=== PATIENT | female | born 1985 | race Caucasian/White ===

== ENCOUNTER → 2017-11-10 | Outpatient (REF) | payer SELFPAY | LOC: M LAB REF 18:15 | DX: Z34.83 Encounter for supervision of other normal pregnancy, third trimester (principal); Z36.89 Encounter for other specified antenatal screening | CPT/HCPCS: 87081 ==

== ENCOUNTER → 2017-11-21 | Outpatient (CLI) | payer SELFPAY ==
[2017-11-21 17:22] LABS: BASO % 0.3 % (0.0-1.0); EOS # 0.2 10^3/uL (0.0-0.50); HEMATOCRIT 36.7 % (36.0-47.0); HEMOGLOBIN 11.9 g/dl (12.0-15.5); IMMATURE GRANULOCYTE % 0.6 % (0-3.0); LYMPH # 1.8 10^3/uL (1.5-4.5); LYMPH % 18.6 % (24.0-44.0); MEAN CORPUSCULAR HEMOGLOBIN 28.7 pg (27.0-33.0); MEAN CORPUSCULAR HGB CONC 32.4 g/dl (32.0-36.5); MEAN CORPUSCULAR VOLUME 88.6 fl (80.0-96.0); MONO # 0.7 10^3/uL (0.0-0.8); MONO % 7.2 % (0.0-5.0); NEUTROPHILS % 71.3 % (36.0-66.0); PLATELET COUNT, AUTOMATED 222 10^3/uL (150-450); RED BLOOD COUNT 4.14 10^6/uL (4.00-5.40); RED CELL DISTRIBUTION WIDTH 13.4 % (11.5-14.5); WHITE BLOOD COUNT 9.7 10^3/uL (4.0-10.0)
[2017-11-24 13:44] LABS: RUBELLA IgG QUALITATIVE IMMUNE (IMMUNE)
[2017-11-24 13:49] LABS: HBsAg Prenatal NEGATIVE (NEGATIVE)
[2017-11-24 14:14] LABS: HEPATITIS C VIRUS ABY INDEX 0.3 INDEX (<0.8)
[2017-11-24 14:14] LABS: HIV 1&2 SCREEN CENTAUR NEGATIVE (NEGATIVE)
== END ==
LOC: M SMT 14:33
DX: Z36.89 Encounter for other specified antenatal screening (principal); Z3A.36 36 weeks gestation of pregnancy
CPT/HCPCS: 86762

== ENCOUNTER 2017-12-01 06:30 | Inpatient (IN) | payer SELFPAY ==
[2017-12-01] MEDS ORDERED: LR 1,000 ML IV (06:45)
[2017-12-01] MEDS: LACTATED RINGER'S 1000 ML IV (07:00)
[2017-12-01 07:07] LABS: HEMATOCRIT 38.8 % (36.0-47.0); HEMOGLOBIN 12.8 g/dl (12.0-15.5); MEAN CORPUSCULAR HEMOGLOBIN 28.8 pg (27.0-33.0); MEAN CORPUSCULAR VOLUME 87.4 fl (80.0-96.0); PLATELET COUNT, AUTOMATED 233 10^3/uL (150-450); RED BLOOD COUNT 4.44 10^6/uL (4.00-5.40); RED CELL DISTRIBUTION WIDTH 13.5 % (11.5-14.5); WHITE BLOOD COUNT 11.6 10^3/uL (4.0-10.0)
[2017-12-01] MEDS ORDERED: ONDANSETRON 4MG/2ML VIAL (J2405) As Ordered (07:13)
[2017-12-01] MEDS ORDERED: dexameTHASONE 4 MG/ML 1ML VIAL (J1100) As Ordered (07:13)
[2017-12-01] MEDS ORDERED: OXYTOCIN INJ 10 UNITS/ML VIAL (J2590) As Ordered (07:13)
[2017-12-01] MEDS ORDERED: MORPHINE PRES-FREE INJ 10 MG/10 ML VIAL (J2274) As Ordered (07:19)
[2017-12-01] MEDS ORDERED: fentaNYL 100 MCG/2 ML INJECTION (J3010) As Ordered (07:19)
[2017-12-01] MEDS: BICITRA 30ML SOLN UDC PO (09:28)
[2017-12-01] MEDS ORDERED: NALOXONE INJ 0.4 MG/1 ML VIAL (J2310) IV ×2 (09:40)
[2017-12-01] MEDS ORDERED: ONDANSETRON 4MG/2ML VIAL (J2405) IV ×3 (09:40→11:00)
[2017-12-01] MEDS ORDERED: NALBUPHINE HCL 10 MG/ML AMP (J2300) IV (09:40)
[2017-12-01] MEDS ORDERED: METOCLOPRAMIDE INJ 10MG/2ML VIAL (J2765) IV (09:40)
[2017-12-01] MEDS ORDERED: KETOROLAC 60 MG/2 ML VIAL (J1885) As Ordered (10:29)
[2017-12-01] MEDS ORDERED: ePHEDrine SULFATE 25 MG/5 ML(5MG/ML) SYRINGE As Ordered (10:29)
[2017-12-01] MEDS ORDERED: MEASLES,MUMPS,RUBELLA VACCINE INJ (MMR-II) (90707) SC (10:45)
[2017-12-01] MEDS ORDERED: RHOGAM 300 MCG (1500 IU) INJ (J2790) IM (10:45)
[2017-12-01] MEDS ORDERED: DOCUSATE SODIUM 100 MG CAP PO (10:45)
[2017-12-01] MEDS ORDERED: PERCOCET 5MG/325MG TAB PO ×3 (10:45→11:00)
[2017-12-01] MEDS: LR 1,000 ML IV ×2 (11:00→13:32)
[2017-12-01] MEDS ORDERED: fentaNYL 100 MCG/2 ML INJECTION (J3010) IV (11:00)
[2017-12-01] MEDS: KETOROLAC 30 MG/ML VIAL (J1885) IV ×2 (17:18→23:18)
[2017-12-02] MEDS: KETOROLAC 30 MG/ML VIAL (J1885) IV (05:49)
[2017-12-02] MEDS: PRENATAL VITAMINS CHEWABLE TABLET PO (09:11)
[2017-12-02 09:33] LABS: HEMATOCRIT 31.5 % (36.0-47.0); MEAN CORPUSCULAR HEMOGLOBIN 29.2 pg (27.0-33.0); MEAN CORPUSCULAR HGB CONC 33.3 g/dl (32.0-36.5); MEAN CORPUSCULAR VOLUME 87.5 fl (80.0-96.0); PLATELET COUNT, AUTOMATED 202 10^3/uL (150-450); RED CELL DISTRIBUTION WIDTH 13.7 % (11.5-14.5); WHITE BLOOD COUNT 13.3 10^3/uL (4.0-10.0)
[2017-12-02 09:48] LABS: HEMOGLOBIN 10.5 g/dl (12.0-15.5)
[2017-12-02] MEDS ORDERED: IBUPROFEN 800 MG TAB PO (13:00)
== END 2017-12-02 10:55 | disposition home or self-care (01) | DRG 540 ==
LOC: M LDI 06:30 → M OBS 11:46
PROVIDERS: Specialist
PROC: 10D00Z1 Extraction of Products of Conception, Low, Open Approach (ICD-10-PCS; principal; 2017-12-01 08:30)
DX: O34.211 Maternal care for low transverse scar from previous cesarean delivery (principal); Z3A.40 40 weeks gestation of pregnancy; O32.2XX0 Maternal care for transverse and oblique lie, not applicable or unspecified; Z37.0 Single live birth

== ENCOUNTER 2019-08-17 07:01 | Inpatient (IN) | payer SELFPAY ==
[~2019-08-17] VITALS: Ht 154.9 cm; Wt 113.1 kg
[2019-08-17] VITALS (8 sets, daily range): BP systolic 116–138; BP diastolic 60–69
[~2019-08-17 07:01] MED LIST: IBUP-1114 PO; IBUP80TA PO; OXYC1TAB23 FT; OXYC1TAB23 PO
[2019-08-17] MEDS ORDERED: LACTATED RINGER'S 1000 ML IV STA (08:23)
[2019-08-17] MEDS ORDERED: LR 1,000 ML IV SCH ×2 (08:23→11:59)
[2019-08-17] MEDS ORDERED: MORPHINE PRES-FREE INJ 10 MG/10 ML VIAL (J2274) As Ordered ONE (08:54)
[2019-08-17] MEDS ORDERED: OXYTOCIN INJ 10 UNITS/ML VIAL (J2590) As Ordered ONE (08:54)
[2019-08-17] MEDS ORDERED: ceFAZolin SOD 2 GM in IV 1 EA IV ONE (09:00)
[2019-08-17] MEDS ORDERED: BICITRA 30ML SOLN UDC PO ONE (09:00)
[2019-08-17 09:15] LABS: BASO % 0.3 % (0.0-1.0); EOS # 0.1 10^3/uL (0.0-0.5); EOS % 1.1 % (0.0-3.0); HEMATOCRIT 34.5 % (36.0-47.0); HEMOGLOBIN 11.4 g/dl (12.0-15.5); LYMPH # 1.2 10^3/uL (1.5-5.0); LYMPH % 12.5 % (24.0-44.0); MEAN CORPUSCULAR HEMOGLOBIN 28.8 pg (27.0-33.0); MEAN CORPUSCULAR VOLUME 87.1 fl (80.0-96.0); MONO # 0.7 10^3/uL (0.0-0.8); NEUTROPHILS # 7.6 10^3/uL (1.5-8.5); NEUTROPHILS % 78.9 % (36.0-66.0); PLATELET COUNT, AUTOMATED 204 10^3/uL (150-450); RED BLOOD COUNT 3.96 10^6/uL (4.00-5.40); WHITE BLOOD COUNT 9.7 10^3/uL (4.0-10.0)
[2019-08-17] MEDS ORDERED: METOCLOPRAMIDE INJ 10MG/2ML VIAL (J2765 PER 1) IV PRN (10:51)
[2019-08-17] MEDS ORDERED: NALBUPHINE HCL 10 MG/ML AMP (J2300) IV PRN (10:51)
[2019-08-17] MEDS ORDERED: NALOXONE INJ 0.4MG/1ML VIAL (J2310 PER 1MG) IV PRN ×2 (10:51)
[2019-08-17] MEDS ORDERED: diphenhydrAMINE 50MG/ML VIAL (J1200) IV PRN (10:51)
[2019-08-17] MEDS ORDERED: ONDANSETRON 4MG/2ML VIAL IV PRN ×3 (10:51→12:00)
[2019-08-17] MEDS ORDERED: dexameTHASONE 4 MG/ML 1ML VIAL (J1100 PER 1MG) As Ordered ONE (11:05)
[2019-08-17] MEDS ORDERED: KETOROLAC 60 MG/2 ML VIAL As Ordered ONE (11:05)
[2019-08-17] MEDS ORDERED: ONDANSETRON 4MG/2ML VIAL As Ordered ONE (11:05)
[2019-08-17 11:13] LABS: HIV 1&2 SCREEN CENTAUR NEGATIVE (NEGATIVE)
[2019-08-17] MEDS ORDERED: OXYTOCIN DRIP 30 UNITS in IV 1 EA IV SCH (11:59)
[2019-08-17] MEDS ORDERED: fentaNYL 100 MCG/2 ML INJECTION (J3010) IV PRN (12:00)
[2019-08-17] MEDS ORDERED: RHOGAM 300 MCG (1500 IU) INJ (J2790) IM SCH (12:00)
[2019-08-17] MEDS ORDERED: PERCOCET 5MG/325MG TAB PO PRN ×2 (12:00)
[2019-08-17] MEDS ORDERED: DOCUSATE SODIUM 100 MG CAP PO PRN (12:00)
[2019-08-17] MEDS ORDERED: MEASLES,MUMPS,RUBELLA VACCINE INJ (MMR-II) (90707) SC SCH (12:00)
[2019-08-17] MEDS ORDERED: OXYTOCIN 30 UNITS IN 0.9% NaCl 500ML IV BAG (J2590) As Ordered ONE (12:02)
[2019-08-17] MEDS ORDERED: fentaNYL 100 MCG/2 ML INJECTION (J3010) As Ordered ONE (12:15)
--- NOTE | 2019-08-17 12:52 | RO ---
DATE OF PROCEDURE: 08/17/2019 PREPROCEDURE DIAGNOSES: 39 weeks, prior section times three. POSTPROCEDURE DIAGNOSES: 39 weeks, prior section times three. PROCEDURE: Repeat low transverse section. SURGEON: Bradford Rodriguez MD GROCERY SPECIALIST: Tye Ventura DO ANESTHESIA: Spinal. ESTIMATED BLOOD LOSS: 500 mL. URINE OUTPUT: 100 mL. FINDINGS: 3380 gram, 7 pounds 7 ounce, female . scores 9 and 9. Vertex position. Normal uterus, fallopian tubes and ovaries. OPERATIVE SUMMARY: The patient was taken to the operating room where spinal anesthesia was induced. She was prepped and draped in a sterile fashion in a supine position. A Nance catheter was placed. Pfannenstiel skin incision was made with a scalpel and carried through to the fascia. The fascia was nicked and extended. The fascia was dissected off the rectus muscles and the peritoneal cavity was entered. Bladder flap was created. Curvilinear incision was made in the lower uterine segment until bulging membranes were noted. This was extended manually. Membranes ruptured of clear fluid. The was delivered from the vertex position without difficulty. The cord was doubly clamped and cut. The was handed off to the waiting nurse. The placenta was expressed. The uterus was exteriorized and cleared of clots and debris. Uterine incision was closed with 0 Vicryl in a running lock fashion. A second imbricating layer of 0 Vicryl was placed. Uterus was placed back in the abdominal cavity. Peritoneum was closed with 2-0 Vicryl in a running fashion. The fascia was closed with 0 Vicryl. Skin was closed with 4-0 Monocryl subcuticular sutures. Sponge, instrument and needle counts were correct.
[2019-08-17] MEDS: KETOROLAC 30 MG/ML 1ML VIAL IV SCH (18:48)
[2019-08-18] MEDS: KETOROLAC 30 MG/ML 1ML VIAL IV SCH ×2 (00:15→06:16)
[2019-08-18 02:00] VITALS: BP 107/55
[2019-08-18 07:11] VITALS: BP 117/57
[2019-08-18 08:16] LABS: HEMATOCRIT 32.4 % (36.0-47.0); HEMOGLOBIN 10.7 g/dl (12.0-15.5); MEAN CORPUSCULAR HEMOGLOBIN 28.9 pg (27.0-33.0); MEAN CORPUSCULAR VOLUME 87.6 fl (80.0-96.0); PLATELET COUNT, AUTOMATED 220 10^3/uL (150-450)
[2019-08-18] MEDS: PRENATAL VITAMINS CHEWABLE TABLET PO SCH (08:55)
[2019-08-18 09:30] LABS: HEPATITIS C VIRUS ABY INDEX 0.1 INDEX (<0.8)
[2019-08-18 10:34] VITALS: BP 132/63
[2019-08-18] MEDS: IBUPROFEN 800 MG TAB PO SCH ×2 (14:22→21:33)
[2019-08-18 18:35] VITALS: BP 139/71
[2019-08-18 21:36] VITALS: BP 130/76
[2019-08-19 01:45] VITALS: BP 126/70
[2019-08-19] MEDS: IBUPROFEN 800 MG TAB PO SCH ×2 (05:29→13:59)
[2019-08-19 06:02] VITALS: BP 124/78
[2019-08-19] MEDS: PRENATAL VITAMINS CHEWABLE TABLET PO SCH (09:00)
[2019-08-19] MEDS ORDERED: IBUP80TA PO (13:20)
--- NOTE | 2019-08-19 13:30 | DSES ---
DATE OF ADMISSION: 08/17/2019 DATE OF DISCHARGE: 08/19/2019 A 34-year-old, G8, P6 female at 39 weeks' gestation by last menstrual period consistent with 30-week ultrasound who presents for repeat (C) section. She has had two prior sections. She had very limited care during the . HOSPITAL COURSE: The patient was admitted on 08/17/2019. She underwent repeat low transverse section for a 7-pound 7-ounce female . There were no complications. scores were 9 and 9. The baby was subsequently admitted to the intensive care unit (NICU) for respiratory difficulty. Her postoperative course was unremarkable. She had adequate return of bladder and bowel function. Postoperative hemoglobin was 10/7 g/dL. She was deemed stable for discharge on postoperative day #2. ADMISSION DIAGNOSES: term, prior C section times three. DISCHARGE DIAGNOSIS: Delivered. PROCEDURE: Repeat low transverse section. DISPOSITION: The patient is to followup with Dr. Rodriguez in 2 weeks. Instructions were reviewed. VERA
== END 2019-08-19 14:10 | disposition home or self-care (01) | DRG 540 ==
LOC: M LDI 07:01 → M OBS 13:27
PROVIDERS: ADMIT Specialist; ATTEND Specialist
PROC: 10D00Z1 Extraction of Products of Conception, Low, Open Approach (ICD-10-PCS; principal; 2019-08-17 07:30)
DX: O34.211 Maternal care for low transverse scar from previous cesarean delivery (principal); Z37.0 Single live birth; Z3A.39 39 weeks gestation of pregnancy